=== PATIENT | female | born 2000 | race Hispanic/Latino ===

== ENCOUNTER 2024-04-14 23:02 | Emergency (ER) | payer OTHER ==
[2024-04-14] MEDS ORDERED: Ondansetron ODT 4 MG TAB ONE (23:28)
[2024-04-14] MEDS ORDERED: Lidocaine/Transparent Dressing 1 EACH KIT ONE (23:28)
[2024-04-14] MEDS ORDERED: HYDROmorphone 0.5 MG/0.5 ML SYRINGE ONE (23:28)
== END 2024-04-15 00:59 | disposition home or self-care (01) ==
LOC: CSHERS 23:02
DX: L03.317 Cellulitis of buttock (principal)
CPT/HCPCS: 96372; 99283; J1171; Q0162

== ENCOUNTER 2024-04-16 14:36 | Emergency (ER) | payer OTHER ==
[2024-04-16] MEDS ORDERED: Lidocaine 1% w/Epinephrine 1:200K 30 ML VIAL ONE (14:56)
[2024-04-16] MEDS ORDERED: HYDROcodone/Acetaminophen 5/325 mg Tablet ONE (14:58)
[2024-04-16] MEDS ORDERED: Ketorolac Tromethamine 30 MG (1 mL) VIAL ONE (14:58)
[2024-04-16] MEDS ORDERED: Lidocaine/Transparent Dressing 1 EACH KIT ONE (15:04)
== END 2024-04-16 16:09 | disposition home or self-care (01) ==
LOC: CSHERS 14:36
DX: K61.0 Anal abscess (principal)
CPT/HCPCS: 46050; 96372; J1885